=== PATIENT | female | born 1960 | race Caucasian/White ===

== ENCOUNTER 2016-12-27 11:57 | Outpatient (CLI) | payer BC, OTHER | END 2016-12-27 11:58 | disposition home or self-care (01) | DX: Z00.00 Encounter for general adult medical examination without abnormal findings (principal) ==

== ENCOUNTER 2017-02-07 09:59 | Outpatient (CLI) | payer OTHER | END 2017-02-07 10:00 | disposition home or self-care (01) | DX: Z12.31 Encounter for screening mammogram for malignant neoplasm of breast (principal) ==

== ENCOUNTER 2017-09-18 08:15 | Day surgery (SDC) | payer OTHER ==
[2017-09-18] MEDS ORDERED: LACTATED RINGERS 1,000 ML IV ONE ×2 (08:24→10:49)
[2017-09-18] MEDS ORDERED: fentaNYL 100 MCG/2 ML VIAL IVP ONE (10:38)
[2017-09-18] MEDS ORDERED: MIDAZOLAM 2 MG/2 ML VIAL IVP ONE (10:38)
[2017-09-18 11:31] VITALS: BP 108/72
== END 2017-09-18 08:16 | disposition home or self-care (01) ==
LOC: SDS 08:15
PROVIDERS: ATTEND Surgery
PROC: 0DBL8ZX Excision of Transverse Colon, Via Natural or Artificial Opening Endoscopic, Diagnostic (ICD-10-PCS; principal; 2017-09-18 10:00)
DX: D12.3 Benign neoplasm of transverse colon (principal); K57.30 Diverticulosis of large intestine without perforation or abscess without bleeding; K64.8 Other hemorrhoids; F17.210 Nicotine dependence, cigarettes, uncomplicated
CPT/HCPCS: 45380; J7120

== ENCOUNTER 2018-02-11 09:00 | Outpatient (CLI) | payer OTHER | END 2018-02-11 09:01 | disposition home or self-care (01) | LOC: LAB.R 09:00 | PROVIDERS: ATTEND Physician Assistant | DX: L02.412 Cutaneous abscess of left axilla (principal) | CPT/HCPCS: 87070; 87205 ==

== ENCOUNTER 2018-02-12 08:33 | Outpatient (CLI) | payer OTHER | END 2018-02-12 08:34 | disposition home or self-care (01) | LOC: SC 08:33 | PROVIDERS: ATTEND Nurse Practitioner Family | DX: G47.33 Obstructive sleep apnea (adult) (pediatric) (principal) | CPT/HCPCS: 99212; 99214 ==

== ENCOUNTER 2018-02-25 12:55 | Outpatient (CLI) | payer OTHER ==
--- NOTE | 2018-02-25 14:41 | Ultrasound Report ---
LEFT BREAST ULTRASOUND: 02/25/2018 CLINICAL INDICATION: Palpable abnormality left axilla. TECHNIQUE: Real-time scanning was performed with disability representative static images obtained. FINDINGS: Ultrasound of the palpable abnormality identified by the patient was performed. At this site, there is a 7 x 6 x 3 mm sebaceous cyst, with a dermal tail demonstrated. No sonographically suspicious findings are identified. IMPRESSION: SEBACEOUS CYST, ACCOUNTING FOR THE PALPABLE ABNORMALITY. RECOMMENDATION: Routine annual screening unless otherwise clinically indicated. BIRADS CATEGORY 2 - BENIGN FINDINGS. TD: 02/25/2018 14:40
--- NOTE | 2018-02-25 15:29 | Mammography Report ---
DIGITAL DIAGNOSTIC BILATERAL MAMMOGRAM: 02/25/2018 CLINICAL INDICATION: Palpable abnormality left axilla. COMPARISON: 02/07/2017, 04/16/2012, 05/03/2008. TECHNIQUE: Bilateral CC and MLO views, left true lateral and axillary tail views. A marker was placed at the site of palpable abnormality in the left axilla. FINDINGS: The breasts demonstrate heterogeneously dense fibroglandular parenchyma bilaterally. Coarse and punctate, typically benign calcifications are present. The palpable abnormality correlates with a superficial lesion in the left axilla, measuring approximately 6 mm. Please also refer to left breast ultrasound of the same day. IMPRESSION: BENIGN FINDINGS, WITH A SEBACEOUS CYST ACCOUNTING FOR THE PALPABLE ABNORMALITY. RECOMMENDATION: Routine annual screening unless otherwise clinically indicated. BIRADS CATEGORY 2 - BENIGN FINDINGS. STANDARD QUALIFYING STATEMENTS: 1. This examination was reviewed with the aid of Computer-Aided Detection (CAD). 2. A negative or benign imaging report should not delay biopsy if clinically suspicious findings are present. Consider surgical consultation if warranted. More than 5% of cancers are not identified by imaging. 3. Dense breasts may obscure an underlying neoplasm. TD: 02/25/2018 15:29
== END 2018-02-25 12:56 | disposition home or self-care (01) ==
LOC: DI 12:55
PROVIDERS: ATTEND Family Medicine
DX: N60.82 Other benign mammary dysplasias of left breast (principal)
CPT/HCPCS: 76642; 77066

== ENCOUNTER 2018-11-09 14:17 | Outpatient (CLI) | payer OTHER ==
--- NOTE | 2018-11-09 16:42 | MRI Report ---
Reason: CHRONIC BACK PAIN Procedure Date: 11/09/2018 Accession Number: [id number] / [id number] Procedure: MRI - Lumbar Spine W/O CPT Code: FULL RESULT: EXAM: MRI LUMBAR SPINE WITHOUT CONTRAST EXAM DATE: 11/09/2018 03:29 PM. CLINICAL HISTORY: CHRONIC BACK PAIN. COMPARISON: LUMBAR SPINE COMPLETE 10/29/2018 8:45 AM. TECHNIQUE: Multiplanar, multisequence T1-weighted and fluid-sensitive sequences of the lumbar spine from T12 to S1 without contrast. Other: None. FINDINGS: Lumbar alignment is anatomic. Vertebral body height is preserved. There is no fracture. The conus is normal in contour with the tip at the level of the L2 vertebra. Axial images demonstrate the following: T12-L1: Normal intervertebral disk and facet joints. No central or foraminal stenosis. L1-L2: Normal intervertebral disk. Normal facet joints. No central or foraminal stenosis. L2-L3: Mild diffuse disk bulge and mild bilateral facet hypertrophy lead to mild to moderate bilateral foraminal stenosis and minimal central stenosis. L3-L4: Mild to moderate central stenosis is due to diffuse disk bulge with a tiny midline disk protrusion and mild to moderate bilateral facet and ligamentum flavum hypertrophy. Moderate bilateral foraminal stenosis is due to the same factors. L4-L5: There is severe central canal stenosis due to a combination of moderate to severe bilateral facet and ligamentum flavum hypertrophy, mild diffuse disk bulge, and a 7 mm facet joint cyst projecting from the anteromedial margin of the right facet joint. Moderate left and mild to moderate right foraminal stenosis are due to the disk bulge/osteophyte and facet hypertrophy. L5-S1: Moderate bilateral facet arthropathy and mild disk bulge/osteophyte lead to mild bilateral foraminal stenosis but no central stenosis. IMPRESSION: 1. Moderate multilevel lumbar degenerative disk and facet disease leads to multilevel central and foraminal stenosis. 2. Severe central stenosis and moderate left and mild to moderate right foraminal stenosis are present at L4-L5. 3. Mild to moderate bilateral foraminal stenosis and minimal central stenosis at L2-L3. 4. Mild to moderate central stenosis and moderate bilateral foraminal stenosis at L3-L4. 5. Mild bilateral foraminal stenosis but no central stenosis at L5-S1. Comment: The following findings are so common in adults without low back pain that while we report their presence, they must be interpreted with caution and in the context of the clinical situation. (Reference Alla et al, Spine 2001) Prevalence of findings in patients without low back pain: Disk degeneration (any evidence): 92% Disk desiccation/T2 signal loss: 83% Disk height loss: 56% Disk bulge: 64% Disk protrusion: 32% Annular tear/high intensity zone: 38% RADIA
== END 2018-11-09 14:18 | disposition home or self-care (01) ==
LOC: DI 14:17
PROVIDERS: ATTEND Orthopaedic Surgery
DX: M47.9 Spondylosis, unspecified (principal); M51.36 Other intervertebral disc degeneration, lumbar region; M48.061 Spinal stenosis, lumbar region without neurogenic claudication
CPT/HCPCS: 72148

== ENCOUNTER 2018-12-11 08:49 | Outpatient (CLI) | payer OTHER ==
--- NOTE | 2018-12-11 11:30 | Mammography Report ---
Reason: BREAST LUMP OR MASS Procedure Date: 12/11/2018 Accession Number: [id number] / [id number] Procedure: QUIQUE - Diagnostic Dig Bilat CPT Code: FULL RESULT: EXAM: Diagnostic Dig Bilat DATE: 12/11/2018 9:34 AM CLINICAL HISTORY: 2 lumps of the left breast noticed a few months ago when the patient was taking oral steroids. Lumps were treated as infection including percutaneous drainage of one of the lumps. TECHNIQUE: Bilateral CC, MLO and laterally exaggerated CC views as well as a left ML view were obtained. COMPARISON: 02/25/2018 through 04/16/2012. FINDINGS: The breasts demonstrate heterogeneously dense fibroglandular parenchyma bilaterally. No mammographic finding is made in the regions marked as palpable in the left breast. There are no suspicious architectural distortions, calcifications or masses in either side. Focused left breast ultrasound of the 2 palpable regions in the medial left breast at 9:00 and at 10:00 revealed a 0.7 x 0.3 x 0.6 cm superficial intradermal phlegmonous appearing area as well as a 0.5 x 0.4 x 0.5 cm superficial intradermal phlegmonous area consistent with provided history. No suspicious sonographic findings are made. IMPRESSION: Benign findings RECOMMENDATION: Recommend routine annual Screening mammography unless otherwise clinically indicated. BIRADS CATEGORY 2: Benign findings STANDARD QUALIFYING STATEMENTS: 1. This examination was not reviewed with the aid of Computer-Aided Detection (CAD). 2. A negative or benign imaging report should not delay biopsy if clinically suspicious findings are present. Consider surgical consultation if warrented. More than 5% of cancers are not identified by imaging. 3. Dense breasts may obscure an underlying neoplasm. 4. This examination was reviewed with the aid of 3D imaging (tomography).
== END 2018-12-11 08:50 | disposition home or self-care (01) ==
LOC: DI 08:49
PROVIDERS: ATTEND Family Medicine
DX: N63.20 Unspecified lump in the left breast, unspecified quadrant (principal)
CPT/HCPCS: 76642; 77066

== ENCOUNTER 2019-12-03 07:40 | Outpatient (CLI) | payer BC, OTHER ==
--- NOTE | 2019-12-03 08:23 | XRAY Report ---
Reason: LEFT WRIST SPRAIN Procedure Date: 12/03/2019 Accession Number: [id number] / [id number] Procedure: WCP - Wrist 3 View LT CPT Code: Final Report FULL RESULT: EXAM: LEFT WRIST RADIOGRAPHY, 3 VIEWS EXAM DATE: 12/03/2019 07:32 AM. CLINICAL HISTORY: 59-year-old female with persistent left wrist area pain post fall onto left wrist on 10/21/2019. COMPARISON: None. TECHNIQUE: Frontal, lateral and oblique views. FINDINGS: Bones: Normal. No fractures or bone lesions. Joints: Normal. No subluxations. Soft Tissues: Normal. No soft tissue swelling. IMPRESSION: Normal wrist radiography. No posttraumatic or other abnormality noted. RADIA
== END 2019-12-03 23:59 | disposition home or self-care (01) ==
LOC: DI.WCP 07:40
PROVIDERS: ATTEND Family Medicine
DX: S63.502A Unspecified sprain of left wrist, initial encounter (principal)

== ENCOUNTER 2019-12-21 07:38 | Outpatient (CLI) | payer BC ==
[2019-12-21 11:55] LABS: BASOPHILS % (AUTO) 0.5 %; EOSINOPHILS # (AUTO) 0.2 10^3/uL (0.0-0.7); EOSINOPHILS % (AUTO) 3.5 %; HGB - HEMOGLOBIN 12.6 g/dL (12.0-16.0); LYMPHOCYTES # (AUTO) 2.3 10^3/uL (1.5-3.5); LYMPHOCYTES % (AUTO) 37.6 %; MEAN CORPUSCULAR HEMOGLOBIN 30.6 pg (27.0-31.0); MEAN CORPUSCULAR HGB CONC 31.7 g/dL (32.0-36.0); MEAN CORPUSCULAR VOLUME 96.4 fL (81.0-99.0); MEAN PLATELET VOLUME 10.6 fL (7.9-10.8); MONOCYTES # (AUTO) 0.4 10^3/uL (0.0-1.0); MONOCYTES % (AUTO) 6.5 %; NEUTROPHILS # (AUTO) 3.1 10^3/uL (1.5-6.6); NEUTROPHILS % (AUTO) 51.6 %; PLT - PLATELET COUNT 298 10^3/uL (130-450); RED BLOOD COUNT 4.12 10^6/uL (4.20-5.40); RED CELL DISTRIBUTION WIDTH 12.7 % (12.0-15.0)
[2019-12-21 12:34] LABS: ALBUMIN 4.3 g/dL (3.2-5.5); ALBUMIN/GLOBULIN RATIO 1.4 (1.0-2.2); BILIRUBIN,TOTAL 0.7 mg/dL (0.2-1.0); CALCIUM 9.4 mg/dL (8.5-10.3); CREATININE 0.9 mg/dL (0.4-1.0); TOTAL PROTEIN 7.3 g/dL (6.7-8.2)
== END 2019-12-21 23:59 | disposition home or self-care (01) ==
LOC: LAB.WCP 07:38
PROVIDERS: ATTEND Family Medicine
DX: K62.5 Hemorrhage of anus and rectum (principal)
CPT/HCPCS: 36415; 80053; 85025

== ENCOUNTER 2020-01-13 13:21 | Outpatient (CLI) | payer BC ==
--- NOTE | 2020-01-14 08:18 | Mammography Report ---
Reason: ROUTINE MAMMO Procedure Date: 01/13/2020 Accession Number: [id number] / [id number] Procedure: MGN - Screening Mammo w/Guero CPT Code: Final Report FULL RESULT: EXAM: Screening Mammo w/Guero DATE: 01/13/2020 1:52 PM CLINICAL HISTORY: Screening encounter. History of benign right breast biopsy in 2006. TECHNIQUE: (B) - Bilateral CC and MLO views were obtained. COMPARISON: 12/11/2018 through 04/16/2012. PARENCHYMAL PATTERN: (D) - The breast(s) demonstrate(s) heterogeneously dense fibroglandular parenchyma. FINDINGS: There are no suspicious masses, calcifications, or areas of distortion. IMPRESSION: Negative examination. BI-RADS category 1. RECOMMENDATION: (ANNUAL) - Recommend routine annual screening mammography. BI-RADS CATEGORY: (1) - Negative. STANDARD QUALIFYING STATEMENTS: 1. This examination was not reviewed with the aid of Computer-Aided Detection (CAD). 2. A negative or benign imaging report should not preclude biopsy if clinically suspicious findings are present. 3. Dense breasts may obscure an underlying neoplasm. 4. This examination was reviewed with the aid of 3D breast imaging (tomosynthesis).
== END 2020-01-13 13:22 | disposition home or self-care (01) ==
LOC: DI.N 13:21
DX: Z12.31 Encounter for screening mammogram for malignant neoplasm of breast (principal)
CPT/HCPCS: 77063; 77067

== ENCOUNTER 2021-05-15 08:00 | Outpatient (CLI) | payer BC ==
[2021-05-15 14:33] LABS: BASOPHILS % (AUTO) 0.6 %; EOSINOPHILS # (AUTO) 0.2 10^3/uL (0.0-0.7); EOSINOPHILS % (AUTO) 3.5 %; HCT - HEMATOCRIT 40.2 % (37.0-47.0); HGB - HEMOGLOBIN 12.8 g/dL (12.0-16.0); LYMPHOCYTES # (AUTO) 2.4 10^3/uL (1.5-3.5); LYMPHOCYTES % (AUTO) 37.9 %; MEAN CORPUSCULAR HEMOGLOBIN 30.8 pg (27.0-31.0); MEAN CORPUSCULAR HGB CONC 31.8 g/dL (32.0-36.0); MEAN CORPUSCULAR VOLUME 96.6 fL (81.0-99.0); MEAN PLATELET VOLUME 10.2 fL (7.9-10.8); MONOCYTES # (AUTO) 0.3 10^3/uL (0.0-1.0); MONOCYTES % (AUTO) 5.1 %; NEUTROPHILS # (AUTO) 3.3 10^3/uL (1.5-6.6); NEUTROPHILS % (AUTO) 51.6 %; PLT - PLATELET COUNT 349 10^3/uL (130-450); RED BLOOD COUNT 4.16 10^6/uL (4.20-5.40); RED CELL DISTRIBUTION WIDTH 12.7 % (12.0-15.0); WHITE BLOOD COUNT 6.3 x10^3/uL (4.8-10.8)
[2021-05-15 15:02] LABS: THYROID STIMULATING HORMONE 1.45 uIU/mL (0.34-5.60)
[2021-05-15 15:03] LABS: ALBUMIN 4.4 g/dL (3.2-5.5); ALBUMIN/GLOBULIN RATIO 1.4 (1.0-2.2); ALKALINE PHOSPHATASE 56 IU/L (42-121); ALT ALANINE AMINOTRANSFERASE 22 IU/L (10-60); AST ASPARTATE AMINOTRANSFERASE 18 IU/L (10-42); BILIRUBIN,TOTAL 0.8 mg/dL (0.2-1.0); BUN - BLOOD UREA NITROGEN 19 mg/dL (6-20); CALCIUM 9.2 mg/dL (8.5-10.3); CARBON DIOXIDE - CO2 25 mmol/L (21-32); CHLORIDE 104 mmol/L (101-111); CHOL/HDL RATIO 6.6 (<4.4); CHOLESTEROL 224 mg/dL; CREATININE 0.9 mg/dL (0.4-1.0); GFR - MDRD 64 (>89); GLUCOSE 111 mg/dL (70-100); HDL CHOLESTEROL 34 mg/dL; LDL CHOLESTEROL,CALCULATED 146 mg/dL; LDL/HDL RATIO 4.3 (<4.4); POTASSIUM 4.2 mmol/L (3.5-5.0); SODIUM 136 mmol/L (135-145); TOTAL PROTEIN 7.5 g/dL (6.7-8.2); TRIGLYCERIDES 219 mg/dL; VLDL CHOLESTEROL 44 mg/dL
== END 2021-05-15 23:59 | disposition home or self-care (01) ==
LOC: LAB.WCP 08:00
PROVIDERS: ATTEND Family Medicine
DX: Z00.00 Encounter for general adult medical examination without abnormal findings (principal)
CPT/HCPCS: 36415; 80053; 80061; 83721; 84443; 85025

== ENCOUNTER 2023-01-31 15:31 | Outpatient (CLI) | payer OTHER ==
[2023-01-31 16:27] VITALS: BP 124/70
--- NOTE | 2023-01-31 16:27 | SLEEP CARE CONSULTATION ---
Information from patient questionnaire entered by Georgiana Ya. I have reviewed and concur with the information entered by Georgiana Ya. This document represents the service I personally performed and the decisions made by me, Kacy Hernandez ARNP. History of Present Illness Service Date and Time: 01/31/2023 1531 Reason for Visit: New patient, Previously diagnosed sleep apnea, sleep apnea on CPAP therapy, Re-establish care (last seen 02/2018) Chief Complaint: reports: Other (UPDATE SUPPLIES) Date of Onset: FOREVER Usual bedtime: 900PM Time it takes to fall asleep: 10MIN Snores at night: Yes Observed to quit breathing while asleep: Yes Sleeps alone due to snoring: No Number of times waking at night: 2-3 Reasons for waking at night: reports: Bathroom, Other (UNKNOWN). denies: Choking, Snoring, Gasping for air Toss, Turn, or Twitch while sleeping: Yes Recalls having dreams: No Usually gets out of bed at: 430-5AM Feels refreshed in the morning: Yes Morning headache: Yes Sleepy or fatigued during the day: Yes Ever fallen asleep while driving: No Takes day naps: No Dreams during day naps: No Prior sleep studies: Yes (HERE 7-8YRS AGO) Additional HPI information: SHAE STORM was previously diagnosed to have very severe, AHI 64.3, obstructive sleep apnea-hypopnea syndrome here at [facility] and comes in today to re- establish care for CPAP therapy. - Parasomnia Symptoms Ever been unable to move upon waking from sleep: No Walks in sleep: No Talks in sleep: No Ever acted out dreams in sleep: No Ever felt weak in the knees when startled or emotional: No Bothered by creepy, crawly, restless sensations in legs: No Problems with memory or concentration: Yes CPAP Compliance Data - Data Reviewed with Patient Current pressure setting (cmH2O): 11 Compliance data discussion: She states she had a Irving machine broke about 2 years ago. She is using her [id number]-hau's old machine since she got a new one. She had it set at the right pressures for her. Her machine is a ResMed Airsense 10. She is getting supplies through her who gets his from [facility]. She is using a Dreamwear nasal cushion, size medium. She states she uses her CPAP mask regularly. She did not bring in the machine or a SD card to her appointment. Subjective Patient concerns: reports: condensation in mask/hose (occasional/random). denies: aerophagia, mask discomfort, air blowing in eyes, mask leak noise, nasal congestion, dry mouth, nose, throat, epistaxis Observed to snore while using device: No Current pressure setting perceived as: comfortable On therapy, patient: reports: sleeping better, awakening more refreshed, being more awake and alert during the day, more rested overall. 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 Patient is and lives in [place]. Have you smoked in the past 12 months: Yes Cigarettes per day (20/pack): 10 Years of smokin Smoking Pack Years: 24.0 Alcohol use: Yes Alcohol amount and frequency: 1DRINK SOMETIMES NIGHTLY Caffeine use: Yes Caffeine amount and frequency: 3CUP COFFEE EVERYMORNING Family History Family history of sleep disordered breathing: No (was adopted) Allergies and Home Medications Known drug allergies: Yes (AUGMENTIN) Drug allergies reviewed: Yes Home medication list reviewed: Yes Allergy and home medication list: Allergies amoxicillin [From Augmentin] Allergy (Intermediate, Verified 01/30/23 14:31) blisters of face clavulanic acid [From Augmentin] Allergy (Intermediate, Verified 01/30/23 14:31) blisters of face Medications: Escitalopram Tylenol Timolol eye drop Latanoprost eye drop Review of Systems Weight gain over past 5 years: 50 Cardiovascular: denies: high blood pressure Respiratory: reports: shortness of breath Gastrointestinal: reports: heartburn Neurological: reports: headaches Psychiatric: reports: anxiety, depression Ear/Nose/Throat: reports: wisdom teeth removed. denies: tonsillectomy Musculoskeletal: reports: neck pain, back pain Immunologic: reports: allergies to food or environment Physical Exam Vital signs obtained and entered by: GEORGIANA Mckay MA Blood Pressure: 124/70 (LEFT ARM) Cuff size: regular Heart Rate: 83 O2 Saturation: 97 Height: 5 ft 3.75 in Weight: 201 lb 6.4 oz Body Mass Index: 34.8 BMI Classification: Obese Neck circumference: 17.25 Heart: regular rate and rhythm Lungs: clear bilaterally (with light exp rhonchi) Impression and Plan 1. Obstructive Sleep Apnea-Hypopnea Syndrome, very severe, with unknown treatment compliance and unknown apnea control. On CPAP therapy, the patient has better sleep quality and is more rested overall. Patient had a Irving machine that stopped working and she was given a machine by her [id number] who had received a new one. The pressure is set at 11 cm H2O on the ResMed AirSense 10. She forgot to bring within with her but will bring it back before the end of the day so that we might obtain her compliance information from it. She also needs to be set up with a DME company for her supplies. We also need to replace her old broken machine. An order to transfer DME and update CPAP will be completed. Compliance guidelines for new device and follow up discussed. Patient's apnea severity and rationale for treatment to reduce apnea, improve sleep quality and reduce cardiovascular and cerebrovascular events was reviewed. I also reviewed the benefit of consistent device use of CPAP for depression and migraines. 2. Obesity, unspecified. Currently patients BMI is 34.8. Obesity increases the risk of apnea, CPAP pressure requirements and overall health risks especially cardiovascular and diabetes. Thus patient is advised to lose weight. * Continue auto CPAP pressure at 11 cmH2O * Transfer Momo DUONG * Update machine * Update supplies * Notify me if snoring with mask or feeling that the pressure is too much or too little * Attempt to lose weight * Call this office if any problems using CPAP * Return for follow up one month after obtaining new device, or sooner if concerns arise Counseling Topics: Spare mask, Weight loss health impact Visit Type: In Office Time Spent with Patient (minutes): 31 Provider Statement: I spent 100% of the Face to Face Visit with the patient with greater than 50% spent counseling the patient and coordination of care.
== END 2023-01-31 15:32 | disposition home or self-care (01) ==
LOC: SC 15:31
PROVIDERS: ATTEND Nurse Practitioner Family
DX: G47.33 Obstructive sleep apnea (adult) (pediatric) (principal); E66.9 Obesity, unspecified; Z68.34 Body mass index [BMI] 34.0-34.9, adult; F17.210 Nicotine dependence, cigarettes, uncomplicated
CPT/HCPCS: 99203; 99212

== ENCOUNTER 2023-08-25 14:52 | Outpatient (CLI) | payer OTHER ==
[2023-08-25 22:08] LABS: ESTIMATED AVERAGE GLUCOSE 306 mg/dL (70-100); HEMOGLOBIN A1c% 12.3 % (4.27-6.07)
== END 2023-08-25 14:53 | disposition home or self-care (01) ==
LOC: LAB 14:52
PROVIDERS: ATTEND Ophthalmology
DX: H53.8 Other visual disturbances (principal)
CPT/HCPCS: 36415; 81599; 83036

== ENCOUNTER 2024-01-12 08:11 | Emergency (ER) | payer OTHER ==
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
[2024-01-12] MEDS: ACETAMINOPHEN 325 MG TABLET PO STA (09:34)
[2024-01-12] MEDS: IBUPROFEN 600 MG TABLET PO STA (09:35)
[2024-01-12 10:12] VITALS: BP 134/84; O2SAT 99
== END 2024-01-12 10:05 | disposition home or self-care (01) ==
LOC: ED 08:11
DX: S16.1XXA Strain of muscle, fascia and tendon at neck level, initial encounter (principal); Y04.2XXA Assault by strike against or bumped into by another person, initial encounter; W07.XXXA Fall from chair, initial encounter; Y92.009 Unspecified place in unspecified non-institutional (private) residence as the place of occurrence of the external cause; E78.00 Pure hypercholesterolemia, unspecified; G47.30 Sleep apnea, unspecified; E11.9 Type 2 diabetes mellitus without complications; Z79.899 Other long term (current) drug therapy; Z79.4 Long term (current) use of insulin; F17.200 Nicotine dependence, unspecified, uncomplicated
CPT/HCPCS: 99283; A9270